=== PATIENT | male | born 1945 | race Two or more races ===

== ENCOUNTER 2022-08-30 13:36 | Inpatient (IN) | payer MEDICARE, OTHER ==
[2022-08-30] VITALS (27 sets, daily range): BP systolic 120–147; BP diastolic 45–76
[~2022-08-30] VITALS: Ht 170.2 cm; Wt 66.8 kg
[2022-08-30] MEDS ORDERED: dilTIAZem 25 MG/5 ML VIAL IV ONE (14:00)
[2022-08-30] MEDS ORDERED: METOPROLOL TARTRATE 25 MG TAB PO ONE ×2 (14:00→14:45)
[2022-08-30] MEDS ORDERED: dilTIAZem 125mg/125ml BAG KIT 100 ML IV ONE (14:00)
[2022-08-30 14:21] LABS: Basophils # (auto) 0 10 ^3/uL (0-0.2); Basophils % (auto) 0.5 % (0.0-2.0); Eosinophils # (auto) 0 10 ^3/uL (0-0.8); Hematocrit 37.6 % (41.0-53.0); Hemoglobin 12.5 g/dL (13.5-17.5); Lymphocytes # (auto) 0.6 10 ^3/uL (0.4-5.4); Lymphocytes % (auto) 12.7 % (10.0-50.0); Mean Corpuscular Hgb Conc. 33.2 g/dL (32.0-36.0); Mean Corpuscular Volume 96.4 fL (80.0-100.0); Monocytes # (auto) 0.4 10 ^3/uL (0-1.3); Monocytes % (auto) 9.1 % (0.0-12.0); Neutrophils # (auto) 3.6 10 ^3/uL (1.6-8.6); Neutrophils % (auto) 76.7 % (37.0-80.0); White Blood Cell 4.7 10^3/uL (4.4-10.8)
[2022-08-30 14:38] LABS: Albumin 3.7 g/dL (3.4-5.0); Calcium 9.2 mg/dL (8.5-10.1); Magnesium 2.8 mg/dL (1.6-2.6); Potassium 4.6 mmol/L (3.5-5.1)
[2022-08-30 14:42] LABS: BUN/Creatinine Ratio 19.8 (10.0-20.0); Bilirubin, Total 1.4 mg/dL (0.2-1.0); Total Protein 6.7 g/dL (6.4-8.2)
[2022-08-30] MEDS ORDERED: ALBUTEROL SULF 2.5 MG/0.5ML(0.5%) NEB SOLN NEB PRN (15:45)
[2022-08-30] MEDS ORDERED: PANTOPRAZOLE 40 MG/10 ML VIAL INJ IV ONE (15:45)
[2022-08-30] MEDS ORDERED: dilTIAZem 125mg/125ml BAG KIT 125 ML IV SCH (15:45)
[2022-08-30] MEDS ORDERED: MORPHINE SULFATE INJ 2 MG/ml SYRG IV PRN (15:45)
[2022-08-30] MEDS ORDERED: FUROSEMIDE 20 MG/2 ML VIAL IV ONE (15:45)
[2022-08-30] MEDS ORDERED: NITROGLYCERIN 0.4 MG SL TAB SL PRN (15:45)
[2022-08-30] MEDS ORDERED: ACETAMINOPHEN 325 MG TAB PO PRN (15:45)
[2022-08-30 16:19] LABS: INR 1.16 (0.9-1.15)
[2022-08-30] MEDS ORDERED: APIX2.5T PO (19:41)
[2022-08-30] MEDS ORDERED: SILD50TA42 PO (19:41)
[2022-08-30] MEDS ORDERED: BUMEX2MG PO (19:41)
[2022-08-30] MEDS ORDERED: METO5TAB5 PO (19:41)
[2022-08-30] MEDS ORDERED: TAMS0.4C36 PO (19:41)
[2022-08-30] MEDS ORDERED: METO25TA5 PO (19:41)
[2022-08-30] MEDS ORDERED: POTA10TA51 PO (19:41)
[2022-08-30] MEDS ORDERED: CYA100I IM (19:42)
[2022-08-30] MEDS ORDERED: IRBE150T57 PO (19:42)
[2022-08-30] MEDS ORDERED: ASCO500T11 PO (19:42)
[2022-08-30] MEDS ORDERED: MULT1TAB95 PO (19:42)
[2022-08-30 19:57] LABS: Urine Bacteria NONE SEEN /hpf (None Seen); Urine Blood Negative /uL (Negative); Urine Mucus FEW (None Seen); Urine WBC 1 /hpf (0 - 3)
[2022-08-30] MEDS: APIXABAN 5 MG TAB PO SCH (22:06)
[2022-08-30] MEDS: METOPROLOL TARTRATE 25 MG TAB PO SCH (22:06)
[2022-08-31] VITALS (93 sets, daily range): BP systolic 102–161; BP diastolic 36–120
[2022-08-31 05:27] LABS: Basophils # (auto) 0 10 ^3/uL (0-0.2); Basophils % (auto) 0.5 % (0.0-2.0); Eosinophils # (auto) 0.1 10 ^3/uL (0-0.8); Eosinophils % (auto) 2.8 % (0.0-7.0); Hematocrit 36.1 % (41.0-53.0); Hemoglobin 12.2 g/dL (13.5-17.5); Lymphocytes # (auto) 0.7 10 ^3/uL (0.4-5.4); Lymphocytes % (auto) 14.1 % (10.0-50.0); Mean Corpuscular Hemoglobin 32.4 pg (28.0-32.0); Mean Corpuscular Hgb Conc. 33.7 g/dL (32.0-36.0); Mean Corpuscular Volume 96.2 fL (80.0-100.0); Monocytes # (auto) 0.5 10 ^3/uL (0-1.3); Monocytes % (auto) 9.8 % (0.0-12.0); Neutrophils # (auto) 3.7 10 ^3/uL (1.6-8.6); Neutrophils % (auto) 72.8 % (37.0-80.0); Nucleated Red Blood Cells % 0.2 %; Red Blood Cells 3.75 10^6/uL (4.5-5.90); Red Cell Distribution Width 15.7 % (11.8-14.3); White Blood Cell 5.1 10^3/uL (4.4-10.8)
[2022-08-31 05:40] LABS: Potassium 3.8 mmol/L (3.5-5.1)
[2022-08-31 05:44] LABS: Albumin 3.4 g/dL (3.4-5.0)
[2022-08-31 05:58] LABS: Bilirubin, Total 1.2 mg/dL (0.2-1.0); Total Protein 6.2 g/dL (6.4-8.2)
[2022-08-31] MEDS ORDERED: dilTIAZem 120MG ER CAP PO ONE (08:15)
[2022-08-31] MEDS: METOPROLOL TARTRATE 25 MG TAB PO SCH ×2 (09:18→21:25)
[2022-08-31] MEDS: APIXABAN 5 MG TAB PO SCH ×2 (09:18→21:24)
[2022-08-31] MEDS ORDERED: FUROSEMIDE 20 MG/2 ML VIAL IV SCH (10:00)
[2022-08-31] MEDS ORDERED: PANTOPRAZOLE 40 MG/10 ML VIAL INJ IV SCH (10:00)
[2022-08-31] MEDS ORDERED: FUROSEMIDE 20 MG/2 ML VIAL IV ONE (10:30)
[2022-08-31] MEDS ORDERED: hydrALAZINE HCL 20 MG/ML VL IV PRN (10:30)
[2022-08-31] MEDS ORDERED: DIGOXIN (250MCG/ML) 2 ML AMPULE IV ONE (11:00)
[2022-08-31] MEDS ORDERED: FINASTERIDE 5 MG TAB PO ONE (12:45)
[2022-08-31] MEDS ORDERED: LOSARTAN POTASSIUM 50 MG TAB PO ONE (12:45)
[2022-08-31] MEDS ORDERED: POTASSIUM CHL 20 Meq TABLET PO ONE (13:00)
[2022-08-31] MEDS: dilTIAZem 125mg/125ml BAG KIT 125 ML IV SCH (13:45)
[2022-08-31] MEDS: TAMSULOSIN HYDROCHLORIDE 0.4 MG CAP PO SCH (14:57)
[2022-08-31] MEDS: FUROSEMIDE 40 MG/4 ML VIAL IV SCH (17:06)
[2022-09-01] VITALS (55 sets, daily range): BP systolic 96–146; BP diastolic 32–67
[2022-09-01 05:51] LABS: Basophils # (auto) 0 10 ^3/uL (0-0.2); Basophils % (auto) 0.3 % (0.0-2.0); Eosinophils # (auto) 0.1 10 ^3/uL (0-0.8); Eosinophils % (auto) 3.2 % (0.0-7.0); Hematocrit 34.3 % (41.0-53.0); Hemoglobin 11.9 g/dL (13.5-17.5); Lymphocytes # (auto) 0.7 10 ^3/uL (0.4-5.4); Lymphocytes % (auto) 15.4 % (10.0-50.0); Mean Corpuscular Hemoglobin 33.2 pg (28.0-32.0); Mean Corpuscular Hgb Conc. 34.7 g/dL (32.0-36.0); Mean Corpuscular Volume 95.7 fL (80.0-100.0); Monocytes # (auto) 0.5 10 ^3/uL (0-1.3); Monocytes % (auto) 10.9 % (0.0-12.0); Neutrophils # (auto) 3.1 10 ^3/uL (1.6-8.6); Neutrophils % (auto) 70.2 % (37.0-80.0); Nucleated Red Blood Cells % 0.3 %; Red Blood Cells 3.59 10^6/uL (4.5-5.90); Red Cell Distribution Width 15.6 % (11.8-14.3); White Blood Cell 4.4 10^3/uL (4.4-10.8)
[2022-09-01 06:09] LABS: Calcium 8.6 mg/dL (8.5-10.1); Potassium 3.5 mmol/L (3.5-5.1)
[2022-09-01 06:12] LABS: BUN/Creatinine Ratio 22.9 (10.0-20.0)
[2022-09-01] MEDS: FUROSEMIDE 40 MG/4 ML VIAL IV SCH ×2 (06:29→17:36)
[2022-09-01] MEDS: DIGOXIN 0.125 MG TAB PO SCH (08:36)
[2022-09-01] MEDS: LOSARTAN POTASSIUM 50 MG TAB PO SCH (08:36)
[2022-09-01] MEDS: METOPROLOL TARTRATE 25 MG TAB PO SCH ×2 (08:36→21:57)
[2022-09-01] MEDS: dilTIAZem 125mg/125ml BAG KIT 125 ML IV SCH (08:37)
[2022-09-01] MEDS: PANTOPRAZOLE 40 MG TAB PO SCH (08:37)
[2022-09-01] MEDS: FINASTERIDE 5 MG TAB PO SCH (08:37)
[2022-09-01] MEDS: APIXABAN 5 MG TAB PO SCH ×2 (08:37→21:57)
[2022-09-01] MEDS: POTASSIUM CHL 20 Meq TABLET PO SCH (08:37)
[2022-09-01] MEDS ORDERED: dilTIAZem 120MG ER CAP PO SCH (10:00)
[2022-09-01 11:11] LABS: Hematocrit 36.6 % (41.0-53.0); Hemoglobin 12.4 g/dL (13.5-17.5)
[2022-09-01 17:11] LABS: Hematocrit 36.8 % (41.0-53.0); Hemoglobin 12.4 g/dL (13.5-17.5)
[2022-09-01] MEDS: TAMSULOSIN HYDROCHLORIDE 0.4 MG CAP PO SCH (17:36)
[2022-09-01] MEDS ORDERED: METOPROLOL TARTRATE 1MG/1ML-5ML VIAL IV ONE (19:45)
[2022-09-01] MEDS ORDERED: DIGOXIN (250MCG/ML) 2 ML AMPULE IV ONE (22:15)
[2022-09-01 22:58] LABS: Hematocrit 37.6 % (41.0-53.0)
[2022-09-02 05:00] VITALS: BP 102/60
[2022-09-02 05:19] LABS: Basophils # (auto) 0 10 ^3/uL (0-0.2); Basophils % (auto) 0.5 % (0.0-2.0); Eosinophils # (auto) 0.2 10 ^3/uL (0-0.8); Eosinophils % (auto) 3.9 % (0.0-7.0); Hematocrit 35.8 % (41.0-53.0); Hemoglobin 12.6 g/dL (13.5-17.5); Lymphocytes # (auto) 1.1 10 ^3/uL (0.4-5.4); Lymphocytes % (auto) 23.3 % (10.0-50.0); Mean Corpuscular Hgb Conc. 35.2 g/dL (32.0-36.0); Mean Corpuscular Volume 93.7 fL (80.0-100.0); Monocytes # (auto) 0.5 10 ^3/uL (0-1.3); Monocytes % (auto) 11.3 % (0.0-12.0); Neutrophils # (auto) 2.8 10 ^3/uL (1.6-8.6); Nucleated Red Blood Cells % 0.2 %; Red Blood Cells 3.82 10^6/uL (4.5-5.90); Red Cell Distribution Width 15.3 % (11.8-14.3); White Blood Cell 4.5 10^3/uL (4.4-10.8)
[2022-09-02] MEDS: FUROSEMIDE 40 MG/4 ML VIAL IV SCH ×2 (05:51→18:35)
[2022-09-02 09:00] VITALS: BP 124/74
[2022-09-02] MEDS: METOPROLOL TARTRATE 25 MG TAB PO SCH ×2 (09:34→21:23)
[2022-09-02] MEDS: DIGOXIN 0.125 MG TAB PO SCH (09:34)
[2022-09-02] MEDS: PANTOPRAZOLE 40 MG TAB PO SCH (09:35)
[2022-09-02] MEDS: FINASTERIDE 5 MG TAB PO SCH (09:35)
[2022-09-02] MEDS: LOSARTAN POTASSIUM 50 MG TAB PO SCH (09:36)
[2022-09-02] MEDS: APIXABAN 5 MG TAB PO SCH ×2 (09:37→21:22)
[2022-09-02] MEDS: POTASSIUM CHL 20 Meq TABLET PO SCH (09:38)
[2022-09-02 13:00] VITALS: BP 121/54
[2022-09-02 17:00] VITALS: BP 131/66
[2022-09-02] MEDS: TAMSULOSIN HYDROCHLORIDE 0.4 MG CAP PO SCH (18:34)
[2022-09-02 22:00] VITALS: BP 127/85
[2022-09-03 05:00] VITALS: BP 123/64
[2022-09-03] MEDS: FUROSEMIDE 40 MG/4 ML VIAL IV SCH (05:44)
[2022-09-03] MEDS ORDERED: POTASSIUM EFFERVESENT TAB 25 MEQ PO ONE (08:30)
[2022-09-03 09:00] VITALS: BP 125/63
[2022-09-03] MEDS: POTASSIUM CHL 20 Meq TABLET PO SCH (09:50)
[2022-09-03] MEDS: FINASTERIDE 5 MG TAB PO SCH (09:51)
[2022-09-03] MEDS: METOPROLOL TARTRATE 25 MG TAB PO SCH (09:51)
[2022-09-03] MEDS: PANTOPRAZOLE 40 MG TAB PO SCH (09:51)
[2022-09-03] MEDS: DIGOXIN 0.125 MG TAB PO SCH (09:52)
[2022-09-03] MEDS: LOSARTAN POTASSIUM 50 MG TAB PO SCH (09:53)
[2022-09-03] MEDS ORDERED: APIXABAN 2.5 MG TAB PO SCH (10:00)
[2022-09-03] MEDS ORDERED: PANT40T PO (10:18)
[2022-09-03] MEDS ORDERED: DIGO1TAB48 PO (10:18)
[2022-09-03 13:00] VITALS: BP 136/67
== END 2022-09-03 13:25 | disposition home or self-care (01) | DRG 291 ==
LOC: ER 13:36 → EDBD 13:36 → TELE 15:46 → DOU IN ICU 17:35 → TELE-CENTR 09-01 14:28
PROVIDERS: ADMIT Nurse Practitioner Family; ATTEND Internal Medicine
DX: I11.0 Hypertensive heart disease with heart failure (principal); I50.43 Acute on chronic combined systolic (congestive) and diastolic (congestive) heart failure; J96.00 Acute respiratory failure, unspecified whether with hypoxia or hypercapnia; D68.69 Other thrombophilia; D69.6 Thrombocytopenia, unspecified; I48.91 Unspecified atrial fibrillation; D64.9 Anemia, unspecified; N40.0 Benign prostatic hyperplasia without lower urinary tract symptoms; I25.10 Atherosclerotic heart disease of native coronary artery without angina pectoris; Z79.01 Long term (current) use of anticoagulants; Z79.899 Other long term (current) drug therapy; Z87.01 Personal history of pneumonia (recurrent); Z95.2 Presence of prosthetic heart valve; Z95.810 Presence of automatic (implantable) cardiac defibrillator
CPT/HCPCS: 36415; 71045; 80048; 80053; 80162; 81001; 83036; 83735; 83880; 84443; 84484; 85014; 85018; 85025; 85610; 87081; 93005; 93306; 96365; 96366; 99291; C9113; G0378